=== PATIENT | female | born 1950 ===

== ENCOUNTER 2021-09-10 16:52 | Inpatient (IN) | payer OTHER ==
[~2021-09-10] VITALS: Ht 167.6 cm; Wt 83.4 kg
[2021-09-10] MEDS ORDERED: DILTIAZEM 50MG VIAL IV ONE (17:07)
[2021-09-10 17:17] LABS: BASOPHILS % (AUTO) 0.3 % (0.0-5.0); EOSINOPHILS % (AUTO) 1.4 % (0.0-8.0); HEMATOCRIT 35.6 % (36-48); LYMPHOCYTES % (AUTO) 30.7 % (21.0-51.0); MEAN CORPUSCULAR HEMOGLOBIN 28.1 pg (27.0-33.0); MEAN CORPUSCULAR VOLUME 87.9 fL (79-99); MONOCYTES % (AUTO) 11.7 % (3.0-13.0); NEUTROPHILS % (AUTO) 55.8 % (40.0-77.0); PLATELET COUNT (AUTO) 109 K/uL (130-400); RED BLOOD CELL COUNT(AUTO) 4.05 MIL/uL (4.00-5.50); RED CELL DISTRIBUTION WIDTH 15.1 % (11.0-15.5); WHITE BLOOD COUNT (AUTO) 7.9 K/uL (4.8-10.8)
[2021-09-10 17:27] LABS: CREATININE 1.2 mg/dL (0.5-1.5); POTASSIUM 4.1 mmol/L (3.5-5.1)
[2021-09-10 17:29] LABS: INR 1.04 (0.85-1.15); PROTHROMBIN TIME 11.3 SEC (9.6-11.6)
[2021-09-10 17:30] LABS: PARTIAL THROMBOPLASTIN TIME 23.4 SEC (26.3-35.5)
[2021-09-10] MEDS ORDERED: DILTIAZEM 25MG INJ IVP SCH (17:30)
[2021-09-10 17:36] LABS: ALBUMIN 4.1 g/dL (3.5-5.0); BILIRUBIN,TOTAL 1.1 mg/dL (0.2-1.0)
[2021-09-10 17:38] LABS: B-TYPE NATRIURETIC PEPTIDE 385 pg/mL (0-100)
[2021-09-10] MEDS ORDERED: FUROSEMIDE 40MG VIAL IV ONE (18:00)
[2021-09-10] MEDS ORDERED: ASPIRIN 81MG CHEW TAB PO ONE (18:30)
[2021-09-10 18:46] LABS: APPEARANCE,URINE Clear (CLEAR); BILIRUBIN,URINE Negative (NEGATIVE); COLOR,URINE Yellow (YELLOW); GLUCOSE, URINE (UA) Negative (NEGATIVE); KETONES,URINE Negative (NEGATIVE); LEUKOCYTE ESTERASE ,URINE Small (NEGATIVE); NITRATE,URINE Negative (NEGATIVE); OCCULT BLOOD,URINE Trace (NEGATIVE); PH,URINE 5.5 (5.0-8.0); PROTEIN,URINE Negative (NEGATIVE); UROBILINOGEN,URINE 0.2 mg/dL (0.2-1.0)
[2021-09-10 18:52] LABS: BACTERIA,URINE Few /HPF (None Seen); MUCUS,URINE Few LPF (None Seen); RBC,URINE 0-1 /HPF (0-1); SQUAMOUS EPITHELIAL CELL,UR Many /HPF (0-2); TRANSITIONAL EPI CELLS,URINE Moderate /HPF (None Seen)
[2021-09-10] MEDS ORDERED: IOHEXOL 350 MG/ML 100ML INFUS..BTL IV ONE (19:23)
[2021-09-10] MEDS ORDERED: ACETAMINOPHEN 325 MG TAB PO PRN (20:30)
[2021-09-10] MEDS ORDERED: ONDANSETRON 4MG INJ IV PRN (20:30)
[2021-09-10] MEDS ORDERED: FAMOTIDINE 20MG TAB ONE (20:56)
[2021-09-10] MEDS: FUROSEMIDE 40MG VIAL IVP SCH (21:08)
[2021-09-10] MEDS: SIMVASTATIN 20 MG TABLET PO SCH (21:08)
[2021-09-10] MEDS: NITROGLYCERIN 1GM OINT 1 INCH/1GM TD SCH (21:09)
[2021-09-10] MEDS: METOPROLOL TARTRATE 25 MG TAB PO SCH (21:09)
[2021-09-10 23:59] VITALS: BP 118/79
[2021-09-11 03:25] VITALS: BP 115/70
[2021-09-11 04:06] LABS: BASOPHILS % (AUTO) 0.3 % (0.0-5.0); EOSINOPHILS % (AUTO) 1.5 % (0.0-8.0); HEMATOCRIT 35.3 % (36-48); LYMPHOCYTES % (AUTO) 26.9 % (21.0-51.0); MEAN CORPUSCULAR HEMOGLOBIN 28.2 pg (27.0-33.0); MEAN CORPUSCULAR HGB CONC 31.2 g/dL (32.0-36.0); MEAN CORPUSCULAR VOLUME 90.5 fL (79-99); MONOCYTES % (AUTO) 22.2 % (3.0-13.0); NEUTROPHILS % (AUTO) 48.8 % (40.0-77.0); PLATELET COUNT (AUTO) 105 K/uL (130-400); WHITE BLOOD COUNT (AUTO) 6.5 K/uL (4.8-10.8)
[2021-09-11 04:26] LABS: CREATININE 1.1 mg/dL (0.5-1.5); MAGNESIUM 1.8 mg/dL (1.80-2.40); PHOSPHORUS 5.3 mg/dL (2.5-4.9); POTASSIUM 3.4 mmol/L (3.5-5.1)
[2021-09-11] MEDS: NITROGLYCERIN 1GM OINT 1 INCH/1GM TD SCH (04:30)
[2021-09-11 07:56] VITALS: BP 114/74
[2021-09-11] MEDS: FAMOTIDINE 20MG TAB PO SCH (08:04)
[2021-09-11] MEDS: FUROSEMIDE 40MG VIAL IVP SCH ×2 (08:05→18:48)
[2021-09-11] MEDS: METOPROLOL TARTRATE 25 MG TAB PO SCH (08:05)
[2021-09-11] MEDS ORDERED: LISINOPRIL 10 MG TABLET PO SCH (09:00)
[2021-09-11] MEDS ORDERED: NITROGLYCERIN 1GM OINT 1 INCH/1GM TD SCH (09:00)
[2021-09-11] MEDS ORDERED: KCL 20 MEQ ERTAB PO SCH (09:00)
[2021-09-11 10:59] VITALS: BP 114/71
[2021-09-11] MEDS ORDERED: METOPROLOL TARTRATE 25 MG TAB PO SCH (12:00)
[2021-09-11] MEDS: MAGNESIUM OXIDE 400 MG TABLET PO SCH (12:18)
[2021-09-11] MEDS ORDERED: ENOXAPARIN SODIUM 1 MG/KG SQ SCH (14:00)
[2021-09-11] MEDS: ENOXAPARIN SODIUM 80 MG/0.8 ML SQ SCH ×2 (14:31→20:35)
[2021-09-11 16:37] VITALS: BP 106/58
[2021-09-11 20:24] VITALS: BP 100/60
[2021-09-11] MEDS: METOPROLOL TARTRATE 50 MG TAB PO SCH (20:28)
[2021-09-11] MEDS: SIMVASTATIN 20 MG TABLET PO SCH (20:28)
[2021-09-12] VITALS: BP 100/67
[2021-09-12 04:00] VITALS: BP 108/76
[2021-09-12] MEDS: FUROSEMIDE 40MG VIAL IVP SCH ×2 (06:06→18:26)
[2021-09-12 06:57] LABS: BASOPHILS % (AUTO) 0.2 % (0.0-5.0); EOSINOPHILS % (AUTO) 2.7 % (0.0-8.0); LYMPHOCYTES % (AUTO) 36.9 % (21.0-51.0); MEAN CORPUSCULAR HEMOGLOBIN 27.8 pg (27.0-33.0); MEAN CORPUSCULAR HGB CONC 31.1 g/dL (32.0-36.0); MEAN CORPUSCULAR VOLUME 89.6 fL (79-99); MONOCYTES % (AUTO) 15.6 % (3.0-13.0); NEUTROPHILS % (AUTO) 44.4 % (40.0-77.0); PLATELET COUNT (AUTO) 111 K/uL (130-400); RED BLOOD CELL COUNT(AUTO) 4.13 MIL/uL (4.00-5.50); RED CELL DISTRIBUTION WIDTH 14.8 % (11.0-15.5); WHITE BLOOD COUNT (AUTO) 6.3 K/uL (4.8-10.8)
[2021-09-12 07:07] LABS: CREATININE 1.2 mg/dL (0.5-1.5); POTASSIUM 4.1 mmol/L (3.5-5.1)
[2021-09-12 07:30] VITALS: BP 110/61
[2021-09-12] MEDS: MAGNESIUM OXIDE 400 MG TABLET PO SCH (09:00)
[2021-09-12] MEDS ORDERED: MAGNESIUM 2GM PREMIX 50ML 50 ML IV ONE (09:13)
[2021-09-12] MEDS: FAMOTIDINE 20MG TAB PO SCH (09:21)
[2021-09-12] MEDS: METOPROLOL TARTRATE 50 MG TAB PO SCH ×2 (09:21→20:30)
[2021-09-12] MEDS: ENOXAPARIN SODIUM 80 MG/0.8 ML SQ SCH ×2 (09:22→20:30)
[2021-09-12] MEDS ORDERED: MAGNESIUM 2GM PREMIX 50ML 50 ML IV PRN (09:30)
[2021-09-12 11:00] VITALS: BP 90/57
[2021-09-12 16:00] VITALS: BP 118/73
[2021-09-12 20:22] VITALS: BP 108/72
[2021-09-12] MEDS: SIMVASTATIN 20 MG TABLET PO SCH (20:30)
[2021-09-13] VITALS (7 sets, daily range): BP systolic 99–119; BP diastolic 62–82
[2021-09-13 04:00] LABS: BASOPHILS % (AUTO) 0.2 % (0.0-5.0); EOSINOPHILS % (AUTO) 2.7 % (0.0-8.0); HEMATOCRIT 35.2 % (36-48); MEAN CORPUSCULAR HEMOGLOBIN 27.9 pg (27.0-33.0); MEAN CORPUSCULAR HGB CONC 31.8 g/dL (32.0-36.0); MEAN CORPUSCULAR VOLUME 87.8 fL (79-99); MONOCYTES % (AUTO) 15.8 % (3.0-13.0); NEUTROPHILS % (AUTO) 38.1 % (40.0-77.0); PLATELET COUNT (AUTO) 99 K/uL (130-400); RED BLOOD CELL COUNT(AUTO) 4.01 MIL/uL (4.00-5.50); RED CELL DISTRIBUTION WIDTH 14.6 % (11.0-15.5)
[2021-09-13 04:10] LABS: CREATININE 1.3 mg/dL (0.5-1.5); POTASSIUM 3.8 mmol/L (3.5-5.1)
[2021-09-13 04:15] LABS: B-TYPE NATRIURETIC PEPTIDE 116 pg/mL (0-100)
[2021-09-13] MEDS: FUROSEMIDE 40MG VIAL IVP SCH (05:42)
[2021-09-13] MEDS: MAGNESIUM OXIDE 400 MG TABLET PO SCH (09:00)
[2021-09-13] MEDS: METOPROLOL TARTRATE 50 MG TAB PO SCH ×2 (09:39→20:19)
[2021-09-13] MEDS: FAMOTIDINE 20MG TAB PO SCH (09:39)
[2021-09-13] MEDS: LISINOPRIL 2.5 MG TABLET PO SCH (09:39)
[2021-09-13] MEDS: ENOXAPARIN SODIUM 80 MG/0.8 ML SQ SCH ×2 (09:41→20:20)
[2021-09-13] MEDS: SIMVASTATIN 20 MG TABLET PO SCH (20:19)
[2021-09-13] MEDS ORDERED: [UNRECOGNIZED DRUG - OTHER] PO (21:25)
[2021-09-13] MEDS ORDERED: [UNRECOGNIZED DRUG - OTHER] PO (21:25)
[2021-09-13] MEDS ORDERED: [UNRECOGNIZED DRUG - OTHER] PO (21:25)
[2021-09-13] MEDS ORDERED: SIMV-43 PO (21:25)
[2021-09-13] MEDS ORDERED: BISO5TAB19 PO (21:25)
[2021-09-13] MEDS ORDERED: GLUCOPHAGE PO (21:25)
[2021-09-14] VITALS (7 sets, daily range): BP systolic 93–132; BP diastolic 58–76
[2021-09-14] MEDS: MAGNESIUM OXIDE 400 MG TABLET PO SCH (09:00)
[2021-09-14] MEDS: LISINOPRIL 2.5 MG TABLET PO SCH (09:19)
[2021-09-14] MEDS: FAMOTIDINE 20MG TAB PO SCH (09:19)
[2021-09-14] MEDS: METOPROLOL TARTRATE 50 MG TAB PO SCH ×2 (09:19→20:26)
[2021-09-14] MEDS: ENOXAPARIN SODIUM 80 MG/0.8 ML SQ SCH ×2 (09:41→20:26)
[2021-09-14] MEDS: SIMVASTATIN 20 MG TABLET PO SCH (20:25)
[2021-09-15 04:14] VITALS: BP 109/76
[2021-09-15] MEDS ORDERED: LIDOCAINE HCL 1% 20 ML VIAL ONE (06:58)
[2021-09-15 07:00] VITALS: BP 101/60
[2021-09-15] MEDS ORDERED: MIDAZOLAM HCL 1 MG/ML 2ML VIAL IVP ONE (07:00)
[2021-09-15] MEDS ORDERED: FENTANYL CITRATE PF 50 MCG/1 ML 2ML VIAL IVP ONE (07:00)
[2021-09-15] MEDS ORDERED: LIDOCAINE HCL 2% VISCOUS 15 ML UDCUP PO SCH (07:30)
[2021-09-15] MEDS ORDERED: MIDAZOLAM HCL 1 MG/ML 2ML VIAL IVP SCH (07:30)
[2021-09-15] MEDS: MAGNESIUM OXIDE 400 MG TABLET PO SCH (09:00)
[2021-09-15] MEDS ORDERED: AMIODARONE 900MG VIAL 540 MG in DEXTROSE 5%-WATER 300 ML IV STA (09:10)
[2021-09-15] MEDS ORDERED: AMIODARONE 900MG VIAL 150 MG in DEXTROSE 5%-WATER 100 ML IV SCH (09:30)
[2021-09-15] MEDS ORDERED: AMIODARONE 900MG VIAL 360 MG in DEXTROSE 5%-WATER 200 ML IV SCH (09:30)
[2021-09-15] MEDS: FAMOTIDINE 20MG TAB PO SCH (10:08)
[2021-09-15] MEDS: LISINOPRIL 2.5 MG TABLET PO SCH (10:08)
[2021-09-15] MEDS: METOPROLOL TARTRATE 50 MG TAB PO SCH ×2 (10:08→20:14)
[2021-09-15] MEDS: ENOXAPARIN SODIUM 80 MG/0.8 ML SQ SCH (10:11)
[2021-09-15 11:00] VITALS: BP 101/60
[2021-09-15] MEDS ORDERED: ETOMIDATE 20MG VIAL ONE (14:43)
[2021-09-15] MEDS ORDERED: SUCCINYLCHOLINE CHLORIDE 20 MG/ML 10 ML VIAL ONE (14:43)
[2021-09-15] MEDS ORDERED: ATROPINE 1MG SYG IVP ONE (14:44)
[2021-09-15 16:00] VITALS: BP 101/66
[2021-09-15] MEDS ORDERED: FUROSEMIDE 20 MG TABLET PO ONE (16:30)
[2021-09-15 19:28] VITALS: BP 94/54
[2021-09-15] MEDS: SIMVASTATIN 20 MG TABLET PO SCH (20:14)
[2021-09-15] MEDS: APIXABAN 5 MG TABLET PO SCH (20:14)
[2021-09-15 23:41] VITALS: BP 114/76
[2021-09-16 03:23] VITALS: BP 117/74
[2021-09-16 04:15] LABS: CREATININE 0.9 mg/dL (0.5-1.5)
[2021-09-16] MEDS ORDERED: AMIO400T4 PO (08:10)
[2021-09-16] MEDS ORDERED: FAMO20TA8 PO (08:10)
[2021-09-16] MEDS ORDERED: SPIR25TA6 PO (08:10)
[2021-09-16] MEDS ORDERED: AMIO200T68 PO (08:10)
[2021-09-16] MEDS ORDERED: APIX5TAB PO (08:10)
[2021-09-16] MEDS ORDERED: LISI2.5T13 PO (08:10)
[2021-09-16] MEDS ORDERED: MAGN400C PO (08:10)
[2021-09-16] MEDS ORDERED: FURO20TA6 PO (08:10)
[2021-09-16 08:30] VITALS: BP 121/71
[2021-09-16] MEDS ORDERED: FUROSEMIDE 20 MG TABLET PO SCH (09:00)
[2021-09-16] MEDS ORDERED: SPIRONOLACTONE 25 MG TAB PO SCH (09:00)
[2021-09-16] MEDS: METOPROLOL TARTRATE 50 MG TAB PO SCH (09:49)
[2021-09-16] MEDS: LISINOPRIL 2.5 MG TABLET PO SCH (09:51)
[2021-09-16] MEDS: APIXABAN 5 MG TABLET PO SCH (09:51)
[2021-09-16] MEDS: FAMOTIDINE 20MG TAB PO SCH (09:52)
[2021-09-16] MEDS: MAGNESIUM OXIDE 400 MG TABLET PO SCH (09:55)
== END 2021-09-16 11:15 | disposition home or self-care (01) | DRG 291 ==
LOC: EDH 16:52 → EDHIP 20:27 → 4AH 23:31 → 4BH 09-11 14:06 → 2AH 09-13 22:21
PROVIDERS: ADMIT Internal Medicine; ATTEND Internal Medicine
PROC: 5A2204Z Restoration of Cardiac Rhythm, Single (ICD-10-PCS; principal; 2021-09-15)
DX: I11.0 Hypertensive heart disease with heart failure (principal); I50.41 Acute combined systolic (congestive) and diastolic (congestive) heart failure; D68.69 Other thrombophilia; I48.3 Typical atrial flutter; D69.6 Thrombocytopenia, unspecified; E78.5 Hyperlipidemia, unspecified; E11.9 Type 2 diabetes mellitus without complications; E78.00 Pure hypercholesterolemia, unspecified; R09.02 Hypoxemia; Z60.2 Problems related to living alone; E87.6 Hypokalemia; Z20.822 Contact with and (suspected) exposure to COVID-19; I48.0 Paroxysmal atrial fibrillation; Z90.710 Acquired absence of both cervix and uterus; Z90.49 Acquired absence of other specified parts of digestive tract; Z95.2 Presence of prosthetic heart valve; Z87.891 Personal history of nicotine dependence; Z87.74 Personal history of (corrected) congenital malformations of heart and circulatory system; Z79.01 Long term (current) use of anticoagulants
CPT/HCPCS: 36415; 71045; 71275; 80048; 80053; 81001; 83735; 83880; 84100; 84484; 85025; 85378; 85610; 85730; 87088; 87635; 93005; 93306; 93313; 93356; 99291; G0378; J0282; J0330; J0461; J1650; J1940; J2250; J3010; J3475; J3490; J7060; Q9967